=== PATIENT | male | born 1960 | race Caucasian/White ===

== ENCOUNTER 2019-07-18 17:47 | Emergency (ER) | payer OTHER ==
[~2019-07-18] VITALS: Ht 180.3 cm; Wt 86.9 kg
[2019-07-18 17:48] VITALS: BP 161/91
[2019-07-18] MEDS ORDERED: SERT50TA29 PO (17:59)
[2019-07-18] MEDS ORDERED: diazePAM 5 MG TAB PO ONE (18:45)
--- NOTE | 2019-07-18 20:34 | REPVR ---
PROCEDURE INFORMATION: Exam: US Retroperitoneal Limited, Kidneys Exam date and time: 07/18/2019 7:39 PM Clinical history: 59 years old, male; Abdominal pain; Flank; Right; Additional info: Right flank pain, eval for hydronephrosis/ureter TECHNIQUE: Imaging protocol: Real-time ultrasound of the retroperitoneum with image documentation. Examination was focused on the kidneys. COMPARISON: No relevant prior studies available. FINDINGS: Right kidney: The right kidney measures 11.3 CM in length and there is no evidence of hydronephrosis. Left kidney: The left kidney measures 13.4 CM in length and there is no evidence of hydronephrosis. There is severe lobulation of the upper margin of the left kidney and this area cannot be completely evaluated or cleared. I would recommend a CT scan of the kidneys for further evaluation. Bladder: There is only a small amount of urine in the urinary bladder therefore complete evaluation would be impossible. IMPRESSION: 1. No evidence of hydronephrosis. 2. Lobulation and prominence of the upper pole of the left kidney and difficult to completely evaluate. To exclude any pathology recommend correlation with CT with contrast. Electronically signed by: Levi Rico On 07/18/2019 20:32:52 PM
[2019-07-18] MEDS ORDERED: ZANA4CAP PO (21:00)
--- NOTE | 2019-07-19 06:46 | ED PDOC ---
Post-Departure Follow-Up caren schultz md faxed formal report of renal us for fu Dora Roberson MD Jul 19, 2019 06:46
== END 2019-07-18 21:08 | disposition home or self-care (01) ==
LOC: M ED 17:47
DX: S39.012A Strain of muscle, fascia and tendon of lower back, initial encounter (principal); M54.31 Sciatica, right side; R31.9 Hematuria, unspecified; Z79.899 Other long term (current) drug therapy